=== PATIENT | female | born 1960 | race American Indian/Alaskan Native ===

== ENCOUNTER 2017-08-15 13:28 | Emergency (ER) | payer BC ==
[2017-08-15 14:15] VITALS: BMI 33.5
[2017-08-15 14:58] LABS: BASO # 0.02 K/mm3 (0.0-2.0); BASO % 0.3 % (0.0-3.0); EOS % 0.6 % (1.5-5.0); GRAN # 4.62 (1.4-6.5); GRAN % 71.4 % (50.0-68.0); HEMATOCRIT 43.8 % (36.0-48.0); LYMPH # 1.4 (1.2-3.4); LYMPH % 20.8 % (22.0-35.0); MEAN CELL VOLUME 86.6 fl (80.0-105.0); MEAN CORPUSCULAR HEMOGLOBIN 29.2 pg (25.0-35.0); MEAN CORPUSCULAR HGB CONC 33.8 g/dl (31.0-37.0); MEAN PLATELET VOLUME 11.2 fl (7.0-11.0); MONO # 0.5 (0.1-0.6); MONO % 6.9 % (1.0-6.0); RED CELL DISTRIBUTION WIDTH 14.6 % (11.5-14.5); WHITE BLOOD COUNT 6.5 10^3/ul (4.5-11.0)
[2017-08-15] MEDS ORDERED: Sodium Chloride 0.9% 1,000 ML IV STA (15:03)
[2017-08-15 15:22] LABS: URINE BILIRUBIN NEGATIVE (NEGATIVE); URINE BLOOD NEGATIVE (NEGATIVE); URINE GLUCOSE (UA) NEGATIVE (NEGATIVE); URINE KETONE NEGATIVE (NEGATIVE); URINE LEUKOCYTE ESTERASE NEGATIVE Leu/uL (NEGATIVE); URINE PROTEIN NEGATIVE mg/dL (<30 mg/dL); URINE UROBILINOGEN 0.2 E.U./dL (<1 E.U./dL)
--- NOTE | 2017-08-15 15:22 | ED PDOC ---
Arrival/HPI - General Chief Complaint: Dizziness/Lightheaded Time Seen by Provider: 08/15/17 13:30 Historian: Patient - History of Present Illness Narrative History of Present Illness (Text): 08/15/17 15:15 56yo female with medical history of multiple sclerosis, migraine headache, vertigo present complaining of dizziness. Describes dizziness as spinning sensation when she stands up. Also reports 2episodes of diarrhea which resolved with Immodium. Notes history of similar dizziness which is usually associated with diarrhea. States she took s tabs of OTC draminne at 0700am without relieve. Denies headache, focal weakness, chest pain, abdominal pain, nausea, vomiting, visual change, any other complaint. Past Medical History - Provider Review Nursing Documentation Reviewed: Yes - Infectious Disease Hx of Infectious Diseases: None - Tetanus Immunization Tetanus Immunization: Unknown - Pulmonary Hx Bronchitis: Yes - Neurological Hx Neurological Disorder: Yes Hx Multiple Sclerosis: Yes - Psychiatric Hx Depression: No Hx Emotional Abuse: No Hx Physical Abuse: No Hx Substance Use: No - Surgical History Hx Orthopedic Surgery: Yes - Suicidal Assessment Feels Threatened In Home Enviroment: No Family/Social History - Physician Review Nursing Documentation Reviewed: Yes Family/Social History: Unknown Family HX Smoking Status: Never Smoked Hx Alcohol Use: No Hx Substance Use: No Hx Substance Use Treatment: No Allergies/Home Meds Allergies/Adverse Reactions: Allergies shellfish derived Allergy (Verified 03/03/16 22:58) ANAPHYLAXIS Home Medications: Home Meds Medication Instructions Recorded Confirmed Glatiramer Acetate [Copaxone] 40 mg PO MWF 03/03/16 08/15/17 Levothyroxine [Synthroid] 25 mcg PO DAILY 08/15/17 08/15/17 Review of Systems - Physician Review All systems were reviewed & negative as marked: Yes - Review of Systems Constitutional: Normal Eyes: Normal ENT: Normal Respiratory: Normal Cardiovascular: Normal Gastrointestinal: Normal Genitourinary Female: Normal Musculoskeletal: Normal Skin: Normal Neurological: Dizziness. absent: Headache, Focal Weakness, Speech Changes, Facial Droop Endocrine: Normal Hemo/Lymphatic: Normal Psychiatric: Normal Physical Exam Vital Signs Reviewed: Yes Vital Signs Temp Pulse Resp BP Pulse Ox 08/15/17 18:20 75 18 139/73 100 08/15/17 16:24 78 18 139/52 L 98 08/15/17 14:12 98.1 F 73 12 98/63 L 100 Temperature: Afebrile Blood Pressure: Normal Pulse: Regular Respiratory Rate: Normal Appearance: Positive for: Well-Appearing, Non-Toxic, Comfortable Pain Distress: None Mental Status: Positive for: Alert and Oriented X 3 - Systems Exam Head: Present: Atraumatic, Normocephalic Pupils: Present: PERRL Extroacular Muscles: Present: EOMI Conjunctiva: Present: Normal Mouth: Present: Moist Mucous Membranes Neck: Present: Normal Range of Motion Respiratory/Chest: Present: Clear to Auscultation, Good Air Exchange. No: Respiratory Distress, Accessory Muscle Use Cardiovascular: Present: Regular Rate and Rhythm, Normal S1, S2. No: Murmurs Abdomen: Present: Normal Bowel Sounds. No: Tenderness, Distention, Peritoneal Signs Back: Present: Normal Inspection Upper Extremity: Present: Normal Inspection. No: Cyanosis, Edema Lower Extremity: Present: Normal Inspection. No: Edema Neurological: Present: GCS=15, CN II-XII Intact, Speech Normal, Motor Func Grossly Intact, Normal Sensory Function, Normal Cerebellar Funct, Gait Normal, Memory Normal, Normal 2Pt Descrimination, Other (No focal neurological deficit) Skin: Present: Warm, Dry, Normal Color. No: Rashes Psychiatric: Present: Alert, Oriented x 3, Normal Insight, Normal Concentration Medical Decision Making ED Course and Treatment: 08/15/17 19:31 PT in ED for stated history. She was hydrated in ED. Her BP improved s/p. She notes that her symptoms resolved with medication and hydration. Her lab was unremarkable Head CT - Negative She was neurologically intact. Ambulating with a steady gait. - Lab Interpretations Lab Results: 08/15/17 14:40 08/15/17 15:23 Lab Results 08/15/17 15:23: Sodium 140, Potassium 3.8, Chloride 104, Carbon Dioxide 29, Anion Gap 11, BUN 13, Creatinine 0.9, Est GFR ( Amer) > 60, Est GFR (Non- Af Amer) > 60, Random Glucose 77, Calcium 9.6, Total Bilirubin 0.7, AST 20, ALT 29, Alkaline Phosphatase 55, Lactate Dehydrogenase 431, Total Creatine Kinase 95 , Troponin I < 0.01, Total Protein 6.7, Albumin 4.1, Globulin 2.6, Albumin/ Globulin Ratio 1.6 08/15/17 15:00: Urine Color Light yellow, Urine Appearance Clear, Urine pH 6.0, Ur Specific Burton 1.015, Urine Protein Negative, Urine Glucose (UA) Negative, Urine Ketones Negative, Urine Blood Negative, Urine Nitrate Negative, Urine Bilirubin Negative, Urine Urobilinogen 0.2, Ur Leukocyte Esterase Negative 08/15/17 14:40: PT 11.2, INR 1.03, APTT 30.3 08/15/17 14:40: WBC 6.5, RBC 5.06, Hgb 14.8, Hct 43.8, MCV 86.6, MCH 29.2, MCHC 33.8, RDW 14.6 H, Plt Count 277, MPV 11.2 H, Gran % 71.4 H, Lymph % (Auto) 20.8 L, Kimble % (Auto) 6.9 H, Eos % (Auto) 0.6 L, Baso % (Auto) 0.3, Gran # 4.62, Lymph # 1.4, Kimble # 0.5, Eos # 0.0, Baso # 0.02 - RAD Interpretation Radiology Orders: 08/15/17 15:44 HEAD W/O CONTRAST [CT] Stat - Medication Orders Current Medication Orders: Discontinued Medications Sodium Chloride (Sodium Chloride 0.9%) 1,000 mls @ 999 mls/hr IV .Q1H1M STA Stop: 08/15/17 16:03 Last Admin: 08/15/17 15:11 Dose: 999 mls/hr eMAR Start Stop Document 08/15/17 15:11 CNR (Rec: 08/15/17 15:12 CNR [id number]) Intravenous Solution Start Date 08/15/17 Start Time 15:12 Meclizine HCl (Antivert) 25 mg PO ONCE ONE Stop: 08/15/17 15:05 Last Admin: 08/15/17 15:11 Dose: 25 mg Disposition/Present on Arrival - Present on Arrival Any Indicators Present on Arrival: No History of DVT/PE: No History of Uncontrolled Diabetes: No Urinary Catheter: No History of Decub. Ulcer: No History Surgical Site Infection Following: None - Disposition Have Diagnosis and Disposition been Completed?: Yes Diagnosis: Vertigo Disposition: HOME/ ROUTINE Disposition Time: 18:15 Patient Plan: Discharge Condition: STABLE Discharge Instructions (ExitCare): Vertigo (ED) Additional Instructions: Follow up with your Doctor/Neurologist Return to ED for any new or worsening symptoms Prescriptions: Meclizine [Meclizine*] 25 mg PO Q6 #15 tab Referrals: PCP,NO [Primary Care Provider] - Follow up with primary Forms: [facility] (Samoan)
[2017-08-15 15:23] LABS: URINE APPEARANCE CLEAR (CLEAR); URINE COLOR LIGHT YELLOW (YELLOW)
[2017-08-15 15:26] LABS: INR 1.03 (0.93-1.08)
[2017-08-15 15:27] LABS: PARTIAL THROMBOPLASTIN TIME 30.3 Seconds (25.1-36.5)
[2017-08-15 15:48] LABS: ALB/GLOB RATIO 1.6 (1.1-1.8); ALKALINE PHOSPHATASE 55 U/L (38-126); ALT/SGPT 29 U/L (7-56); AST/SGOT 20 U/L (14-36); BILIRUBIN,TOTAL 0.7 mg/dL (0.2-1.3); BLOOD UREA NITROGEN 13 mg/dL (7-21); CALCIUM 9.6 mg/dL (8.4-10.5); CARBON DIOXIDE 29 mmol/L (21-33); CHLORIDE 104 mmol/L (98-107); GFR AFRICAN-AMERICAN > 60; GLUCOSE,RANDOM 77 mg/dL (70-110); POTASSIUM 3.8 mmol/L (3.6-5.0); SODIUM 140 mmol/L (132-148); TOTAL PROTEIN 6.7 g/dL (5.8-8.3)
[2017-08-15 16:03] VITALS: TEMP 98.1
[2017-08-15 16:03] LABS: TROPONIN I < 0.01 ng/mL
[2017-08-15 16:26] VITALS: RESP 18
--- NOTE | 2017-08-15 18:11 | CT ---
PROCEDURE: CT HEAD WITHOUT CONTRAST. HISTORY: dizziness COMPARISON: Head CT without contrast 03/04/2016. TECHNIQUE: Axial computed tomography images were obtained through the head/brain without intravenous contrast. Radiation dose: Total exam DLP = 871.88 mGy-cm. This CT exam was performed using one or more of the following dose reduction techniques: Automated exposure control, adjustment of the mA and/or kV according to patient size, and/or use of iterative reconstruction technique. FINDINGS: HEMORRHAGE: No intracranial hemorrhage. BRAIN: Normal garcia-white matter differentiation and density are appreciated throughout the cerebrum and cerebellum with the brainstem appearing unremarkable as well. There is no mass effect. There is no suspicious extra-axial fluid collection in the midline brain anatomy appears diffusely unremarkable. VENTRICLES: Unremarkable. No hydrocephalus. CALVARIUM: Unremarkable. PARANASAL SINUSES: Unremarkable as visualized. No significant inflammatory changes. MASTOID AIR CELLS: Unremarkable as visualized. No inflammatory changes. OTHER FINDINGS: None. IMPRESSION: Stable, unremarkable unenhanced head CT.
[2017-08-15 18:21] VITALS: BP 139/73; PULSE 75; O2SAT 100
--- NOTE | 2017-08-16 10:01 | CARD ---
APPROVED REPORT EKG Measurement Heart [id number] <Conclusion> Normal sinus rhythm Normal ECG No change
== END 2017-08-15 18:25 | disposition home or self-care (01) ==
LOC: ED 13:28
DX: R42 Dizziness and giddiness (principal); G35 Multiple sclerosis
CPT/HCPCS: 70450; 80053; 81003; 82550; 83615; 84484; 85025; 85610; 85730; 93005; 99285; J7040

== ENCOUNTER 2019-01-18 22:39 | Emergency (ER) | payer BC ==
[2019-01-18 22:51] VITALS: BMI 30.9
[2019-01-18 22:57] VITALS: RESP 18
--- NOTE | 2019-01-18 23:58 | ED PDOC ---
Arrival/HPI - General Chief Complaint: Dizziness/Lightheaded Time Seen by Provider: 01/18/19 22:47 - History of Present Illness Narrative History of Present Illness (Text): 01/18/19 23:30 A 58 year old female, whose past medical history of multiple sclerosis, asthma, and vertigo, presents to the emergency room complaining of vertigo today. Patient states she feels likes the room is spinning and notes she normally takes meclizine but ran out. Patient denies any headache, nausea, vomiting, chest pain, shortness of breath, or any other symptoms. No PMD Time/Duration: Other (earlier today) Symptom Onset: Gradual Symptom Course: Unchanged Activities at Onset: Light Context: Home Past Medical History - Infectious Disease Hx of Infectious Diseases: None - Tetanus Immunization Tetanus Immunization: Unknown - Pulmonary Hx Respiratory Disorders: Yes Hx Asthma: Yes Hx Bronchitis: Yes - Neurological Hx Neurological Disorder: Yes Hx Multiple Sclerosis: Yes Hx Vertigo: Yes - Musculoskeletal/Rheumatological Hx Musculoskeletal Disorders: Yes Hx Arthritis: Yes - Psychiatric Hx Depression: No Hx Emotional Abuse: No Hx Physical Abuse: No Hx Substance Use: No - Surgical History Hx Orthopedic Surgery: Yes - Suicidal Assessment Feels Threatened In Home Enviroment: No Family/Social History - Physician Review Nursing Documentation Reviewed: Yes Family/Social History: No Known Family HX Smoking Status: Never Smoked Hx Alcohol Use: No Hx Substance Use: No Hx Substance Use Treatment: No Allergies/Home Meds Allergies/Adverse Reactions: Allergies shellfish derived Allergy (Verified 01/18/19 22:51) ANAPHYLAXIS Home Medications: Home Meds Medication Instructions Recorded Confirmed Glatiramer Acetate [Copaxone] 40 mg PO MWF 03/03/16 01/18/19 Levothyroxine [Synthroid] 25 mcg PO DAILY 08/15/17 01/18/19 Montelukast [Singulair] 1 tab PO PRN PRN 01/18/19 01/18/19 Review of Systems - Review of Systems Respiratory: absent: SOB Cardiovascular: absent: Chest Pain Gastrointestinal: absent: Nausea, Vomiting Neurological: Other (vertigo). absent: Headache Physical Exam Vital Signs Reviewed: Yes Vital Signs Temp Pulse Resp BP Pulse Ox 01/18/19 22:56 97.7 F 85 18 160/101 H 100 Temperature: Afebrile Blood Pressure: Hypertensive Pulse: Regular Respiratory Rate: Normal Appearance: Positive for: Well-Appearing Mental Status: Positive for: Alert and Oriented X 3 - Systems Exam Head: Present: Atraumatic, Normocephalic Pupils: Present: PERRL Extroacular Muscles: Present: EOMI Conjunctiva: Present: Normal Mouth: Present: Moist Mucous Membranes Respiratory/Chest: Present: Clear to Auscultation, Good Air Exchange. No: Respiratory Distress, Accessory Muscle Use Cardiovascular: Present: Regular Rate and Rhythm, Normal S1, S2. No: Murmurs Abdomen: No: Tenderness, Distention, Peritoneal Signs Back: Present: Normal Inspection Upper Extremity: Present: Normal Inspection. No: Cyanosis, Edema Lower Extremity: Present: Normal Inspection. No: Edema Neurological: Present: GCS=15, CN II-XII Intact, Speech Normal. No: Other (no s ensory or motor deficits) Skin: Present: Warm, Dry, Normal Color. No: Rashes Psychiatric: Present: Alert, Oriented x 3, Normal Insight, Normal Concentration Medical Decision Making ED Course and Treatment: 01/18/19 23:31 Impression: 58 year old female presenting to the emergency room complaining of vertigo. Plan: -- Antivert -- Reassess and disposition Prior Visits: Notes and results from previous visits were reviewed. Progress Notes: - Medication Orders Current Medication Orders: Discontinued Medications Meclizine HCl (Antivert) 25 mg PO STAT STA Stop: 01/18/19 23:10 Last Admin: 01/18/19 23:16 Dose: 25 mg - Scribe Statement The provider has reviewed the documentation as recorded by the Crispin Miller All medical record entries made by the Crispin were at my direction and personally dictated by me. I have reviewed the chart and agree that the record accurately reflects my personal performance of the history, physical exam, medical decision making, and the department course for this patient. I have also personally directed, reviewed, and agree with the discharge instructions and disposition. Disposition/Present on Arrival - Present on Arrival Any Indicators Present on Arrival: No History of DVT/PE: No History of Uncontrolled Diabetes: No Urinary Catheter: No History of Decub. Ulcer: No History Surgical Site Infection Following: None - Disposition Have Diagnosis and Disposition been Completed?: Yes Diagnosis: Vertigo Disposition: HOME/ ROUTINE Disposition Time: 00:02 Patient Plan: Discharge Condition: GOOD Discharge Instructions (ExitCare): Vertigo (a Type of Dizziness) (DC) Additional Instructions: Take meds as prescribed/follow up with your doctor this week Prescriptions: Meclizine [Meclizine*] 25 mg PO Q6 PRN #24 tab PRN Reason: vertigo Albuterol HFA [Ventolin HFA 90 mcg/actuation (8 g)] 2 puff IH [id number] PRN #1 puff PRN Reason: Wheezing Forms: [facility] (Kyrgyz), WORK NOTE
[2019-01-19 00:12] VITALS: BP 138/74; PULSE 77; TEMP 98.1; O2SAT 98
== END 2019-01-19 00:12 | disposition home or self-care (01) ==
LOC: ED 22:39
DX: R42 Dizziness and giddiness (principal); G35 Multiple sclerosis